=== PATIENT | male | born 1985 | race Caucasian/White ===

== ENCOUNTER 2019-03-26 11:36 | Emergency (ER) | payer SELFPAY ==
[2016-11-13 11:48] VITALS: BP 142/67
[~2019-03-26] VITALS: Ht 190.5 cm; Wt 172.8 kg
[~2019-03-26 11:36] MED LIST: ACYC800T PO; AMOX1TAB61 PO; CLOT12CR2 TP; CLOT15CR3 TP; PRED50TA PO
[2019-03-26] MEDS ORDERED: CEPH-264 PO (12:23)
--- NOTE | 2019-03-26 12:23 | PHYS DOC ---
Past History Past Medical History: No Pertinent History Past Surgical History: No Surgical History Alcohol Use: Occasionally Drug Use: None Adult General Chief Complaint Chief Complaint: GROIN PAIN HPI HPI 33-year-old male presents with scrotal swelling and drainage. The patient has noticed that his testicle seemed to be more swollen the last several days. He noticed a nodule or part of the scrotum yesterday morning. He placed a bandage over this area to protect it from getting rubbed. He took the bandage, he had a small hole with drainage. It drained out some amount of clear, pinkish fluid. The patient had improvement in his scrotal pain. The swelling is about the same. At this time, he does not complain of tenderness or pain. He still has minimal drainage from that site. He denies sexual activity outside of with his . He does not have concern for STD. He has not had a fever or chills. Review of Systems Review of Systems Constitutional: Denies fever or chills [] Eyes: Denies change in visual acuity, redness, or eye pain [] HENT: Denies nasal congestion or sore throat [] Respiratory: Denies cough or shortness of breath [] Cardiovascular: No additional information not addressed in HPI [] GI: Denies abdominal pain, nausea, vomiting, bloody stools or diarrhea [] : Scrotal swelling with drainage[] Musculoskeletal: Denies back pain or joint pain [] Integument: Denies rash or skin lesions [] Neurologic: Denies headache, focal weakness or sensory changes [] Endocrine: Denies polyuria or polydipsia [] All other systems were reviewed and found to be within normal limits, except as documented in this note. Allergies Allergies Allergies Coded Allergies Type Severity Reaction Last Updated Verified No Known Drug Allergies 07/28/16 No Physical Exam Physical Exam Constitutional: Well developed, well nourished, no acute distress, non-toxic a ppearance. [] HENT: Normocephalic, atraumatic, bilateral external ears normal, oropharynx moist, no oral exudates, nose normal. [] Eyes: PERRLA, EOMI, conjunctiva normal, no discharge. [] Neck: Normal range of motion, no tenderness, supple, no stridor. [] Cardiovascular:Heart rate regular rhythm, no murmur [] Lungs & Thorax: Bilateral breath sounds clear to auscultation [] Abdomen: Bowel sounds normal, soft, no tenderness, no masses, no pulsatile masses. [] Skin: Warm, dry, no erythema, no rash. [] Back: No tenderness, no CVA tenderness. [] Extremities: No tenderness, no cyanosis, no clubbing, ROM intact, no edema. [] Neurologic: Alert and oriented X 3, normal motor function, normal sensory function, no focal deficits noted. [] Psychologic: Affect normal, judgement normal, mood normal. : Erythematous, warm scrotum with 3 mm in the inferior area, with serosanguineous drainage. No tenderness to palpation of the testicles.[] Current Patient Data Vital Signs Vital Signs Date Time Temp Pulse Resp B/P (MAP) Pulse Ox O2 Delivery O2 Flow Rate FiO2 03/26/19 11:50 98.3 96 18 96 Room Air EKG EKG [] Radiology/Procedures Radiology/Procedures [] Course & Med Decision Making Course & Med Decision Making Pertinent Labs and Imaging studies reviewed. (See chart for details) The patient appears to have a cellulitis of the scrotum. I do not believe this directly involves the testicles themselves. I will place the patient on Keflex for 7 days. We will give the first dose in the ED. He is stable for discharge at this time. [] Dragon Disclaimer Dragon Disclaimer This electronic medical record was generated, in whole or in part, using a voice recognition dictation system. Departure Departure: Impression: Primary Impression: Cellulitis, scrotum Disposition: 01 HOME, SELF-CARE Condition: STABLE Referrals: PCP,NO (PCP) Patient Instructions: Cellulitis, [id number] Scripts Cephalexin (KEFLEX) 500 Mg Capsule 1 CAP PO TID for cellulitis for 7 Days, #21 CAP Prov: DASIA DIAMOND DO 03/26/19 DASIA DIAMOND DO March 26, 2019 12:23
[2019-03-26] MEDS ORDERED: CEPHALEXIN 250 MG CAPSULE PO ONE (12:45)
== END 2019-03-26 12:33 | disposition home or self-care (01) ==
LOC: ER 11:36
DX: N49.2 Inflammatory disorders of scrotum (principal)
CPT/HCPCS: 99283